=== PATIENT | male | born 1960 | race Caucasian/White ===

== ENCOUNTER 2016-09-30 14:36 | Emergency (ER) | payer OTHER ==
[~2016-09-30] VITALS: Ht 167.6 cm; Wt 69.8 kg
--- NOTE | ~2016-09-30 | CT4 ---
[facility] A Service of [facility] RADIOLOGY TEXT RESULTS PATIENT: JOEL DAVIS LOCATION: [facility] : 60 UNIT #: [id number] AGE: [address]: Mercedes Ornelas MD SEX: M ORDER DR: [id number] [facility] [address] [place], [place] [address] [id number] E MR#: [id number] #: [id number] NAME: JOEL DAVIS : 1960 SEX: M STUDY DATE/TIME: 09/30/2016 17:50 UNIT: [facility] ROOM: STUDY DESCRIPTION: CT Abd and Pelv Wo Cont Attending Physician: Mercedes Ornelas M.D. Ordering Physician: Mercedes Ornelas M.D. Primary Care Physician: Primary Care Physician No MEDICAL IMAGING REPORT This report is preliminary unless electronic signature is present EXAM CT abdomen and pelvis HISTORY Right flank pain times 1.5 weeks. History of kidney stones. Hepatitis C. Appendectomy. FINDINGS CT abdomen and pelvis performed without administration of oral or intravenous contrast. Most recent study for comparison 06/11/2013. This CT examination was performed with one or more of the following radiation dose reduction techniques: automatic exposure control, adjustment of mA and/or kV according to patient size, and iterative reconstruction. Lung bases show emphysema and bilateral dependent atelectasis. Inferior heart and pericardium unremarkable. Cirrhotic morphology of liver. New irregularly marginated though relatively geographic area of hypodensity in the right hepatic lobe measuring approximately 6.9 cm x 6.5 cm x 9.4 cm. Patchier areas of diminished density in segment 4 of the liver. The appearance is nonspecific. Benign and malignant etiologies could be considered. Fatty infiltration might be considered. Given the patient's history, hepatocellular carcinoma is a consideration. Assessment with multiphase contrast-enhanced MRI recommended on elective basis. The gallbladder is not pathologically dilated. Subtle gallbladder wall prominence without adjacent inflammatory change likely reflecting the patient's underlying metabolic status and liver disease. The spleen is enlarged measuring 16.2 cm in craniocaudal extent, previously 13.6 cm. The pancreas, adrenal glands, unremarkable. The kidneys show multiple bilateral nonobstructing calculi largest on the right in the lower pole measuring about 9 mm. Largest on the left in the mid to upper pole measuring about 7 mm. Left lower pole renal cyst unchanged. Left upper pole renal cyst unchanged. No left-sided hydronephrosis. The right kidney shows mild and new pyelocaliectasis and STS. [facility] A Service of [facility] RADIOLOGY TEXT RESULTS PATIENT: JOEL DAVIS LOCATION: [facility] : 60 UNIT #: [id number] AGE: [address]: Mercedes Ornelas MD SEX: M ORDER DR: proximal hydroureter without ureteral calculus seen. No perinephric inflammatory change or fluid collection and no periureteral inflammatory change. There is no urinary bladder calculus. The right-sided constellation of findings is nonspecific and could be physiologic in nature, a reflection of recent stone passage, or potentially reflection of right-sided urinary tract infection. Patient has multiple prostatic calcifications some of which are in the midline. The overall appearance is unchanged from 2014 but I cannot strictly exclude prostatic urethral calculus. CT PELVIS: No inguinal adenopathy. Urinary bladder unremarkable. There is no free fluid in pelvis. No pelvic adenopathy. No pathologically enlarged retroperitoneal lymph nodes. There is evidence of multiple upper abdominal varices. There is some evidence of distal esophageal varices. The visualized stomach, small bowel unremarkable. Colon shows no acute abnormality. Mild vascular prominence in the mesentery which may be a reflection of the patient's portal hypertension. Atherosclerotic arterial calcifications. Ectatic left common iliac artery measuring up to about 1.7 cm in diameter. Similar to prior study. No aortic aneurysm. The bony structures show no acute appearing abnormality. Not mentioned above, there appears to be recanalization of the periumbilical vein as well. IMPRESSION 1. Cirrhotic morphology of liver with evidence of portal hypertension. Compared to 2014, there is increased splenomegaly now measuring 16.2 cm in craniocaudal extent, previously 13.6. There is evidence of esophageal and upper abdominal varices more pronounced than on prior study. Recanalization of the periumbilical vein. 2. New large area of hypodensity in the right hepatic lobe involving portions of segment 8 and 5. It measures up to approximately 6.9 cm x 6.5 cm x 9.4 cm. The appearance is indeterminate. While a benign etiology such as fatty infiltration might be considered, malignant neoplasm inclusive of hepatocellular carcinoma is to be excluded. Finding is best further characterized with multiphase contrast-enhanced MRI or CT on an elective basis. Patchier hypodensity in the left hepatic lobe segment 4 also of indeterminate appearance. 3. Multiple bilateral nonobstructing renal calculi. There is mild right hydronephrosis and proximal hydroureter without obstructing process clearly identified. No surrounding inflammatory change. The appearance could be physiologic in nature though it is new compared to 2014. It could be a reflection of recent stone passage or right-sided urinary tract infection. Correlate with clinical status. 4. Innumerable prostatic calcifications. Overall appearance unchanged from 2014. I cannot strictly exclude prostatic urethral calculus though I see no proximal prostatic urethral distension to increase suspicion for such finding. 5. The alimentary canal shows no acute abnormality. [facility] A Service of [facility] RADIOLOGY TEXT RESULTS PATIENT: JOEL DAVIS LOCATION: [facility] #: [id number] : 60 UNIT #: [id number] AGE: [address]: Mercedes Ornelas MD SEX: M ORDER DR: 6. Left renal cysts. 7. Emphysema and bibasilar atelectasis in lungs. See remainder of incidental findings in body of report above. Dictated by... Kevin Bazzi M.D. THIS IS AN ELECTRONICALLY VERIFIED REPORT Kevin Bazzi M.D. at 10/01/2016 5:54 PM AYDE/lizett TD: 10/01/2016 10:29 JOB #: [id number] MEDICAL IMAGING REPORT Page 1 of 1 COPY
[~2016-09-30 14:36] MED LIST: BACTRIM DS TABL1 TA2 PO; CIPRO PO; DIAZEPAM PO; EC-NAPROSYN500 MG PO; FLEXERIL10 MG PO; FLOMAX0.4 MG PO; HYDROCODON-ACE1 EAC5; LORTAB 5/500 TA1 TA1 PO; LORTAB 5/500 TA1 TA2 PO; LORTAB 7.5-5001 TAB PO; MEDROL4 MG/DOSE- PO; MOTRIN600 M1 PO; NORFLEX100 M1 PO; PAIN MED; PERCOCET; PERCOCET5/325 PO; PHENERGAN12.5 MG/SU RC; PHENERGAN25 M1 DOB; PRILOSEC PO; SLEEPING MED; ULTRAM PO; VICODIN 5/1 TAB 5/50 DOB; VICODIN 5/1 TAB 5/50 PO; VICODIN 5/500 T1 TAB PO; VICODIN PO
[2016-09-30 16:17] LABS: URINE SOURCE CLEAN CATCH
[2016-09-30 16:24] LABS: URINE APPEARANCE CLEAR; URINE BILIRUBIN NEG (NEG); URINE BLOOD 1+ (NEG); URINE COLOR YELLOW; URINE GLUCOSE >1000 MG/DL (NEG); URINE KETONE NEG (NEG); URINE LEUKOCYTE ESTERASE 1+ (NEG); URINE NITRATE NEG (NEG); URINE PH 5.5 (5-8); URINE PROTEIN NEG (NEG); URINE SPECIFIC GRAVITY 1.036 (1.003-1.035); URINE UROBILINOGEN 0.2 MG/DL (NEG)
[2016-09-30 16:26] LABS: CULTURE INDICATED? YES; URINE BACTERIA AUWI NEG (NEGATIVE); URINE SQUAMOUS EPITHELIAL CELL NONE SEEN /[HPF]; UWBCS1 AUWI 200-300 (0-5)
[2016-09-30 16:59] LABS: BASOPHIL% 0.8 % (0-2.5); EOSINOPHIL# 0.1 X10e3 (0-0.7); EOSINOPHIL% 1.8 % (0.0-7.0); HEMATOCRIT 46.7 % (38.0-50.0); HEMOGLOBIN 15.8 gm/dL (13.0-16.0); LYMPHOCYTE% 23.9 % (17.0-45.0); MEAN CELL VOLUME 87.3 FL (83-96); MEAN CORPUSCULAR HEMOGLOBIN 29.6 PG (28-34); MEAN PLATELET VOLUME 7.9 FL (6.5-11.5); MONOCYTE# 0.3 X10e3 (0-1.0); MONOCYTE% 7.2 % (3.0-12.0); NEUTROPHIL# 2.8 X10e3 (1.5-7.1); NEUTROPHIL% 66.3 % (40-75); RED BLOOD COUNT 5.35 X10e (3.90-5.60); RED CELL DISTRIBUTION WIDTH 14.3 % (11.0-15.5); WHITE BLOOD COUNT 4.3 X10e3 (4.0-10.5)
[2016-09-30 17:14] LABS: PLATELET COUNT 87 X10e3 (140-420)
[2016-09-30 17:15] LABS: DIFF IND NO
[2016-09-30 17:23] LABS: ALBUMIN SERUM 4.1 g/dL (3.5-5.0); BILIRUBIN, DIRECT 0.2 mg/dL (0.0-0.2); BILIRUBIN,INDIRECT 0.3 mg/dL (0.0-0.9); BILIRUBIN,TOTAL 0.5 mg/dL (0.2-2.0); CALCIUM SERUM 9.3 mg/dL (8.4-10.2); GLOM FILT RATE Estimated 83.8 mL/min (>60); POTASSIUM 4.5 mmol/L (3.5-5.1); PROTEIN TOTAL SERUM 7.8 g/dL (6.0-8.3)
[2016-09-30] MEDS ORDERED: LORTAB 7.5-3251 EACH PO (18:40)
[2016-09-30] MEDS ORDERED: ALPRAZOLAM0.5 MG PO (18:41)
[2016-09-30] MEDS ORDERED: PRILOSEC PO (18:41)
[2016-09-30] MEDS ORDERED: MENTAX EXT (18:41)
[2016-09-30] MEDS ORDERED: NORVASC PO (18:41)
[2016-09-30] MEDS ORDERED: SYNTHROID0.2 MG PO (18:42)
== END 2016-09-30 21:15 | disposition home or self-care (01) ==
LOC: CED 14:36
DX: R10.9 Unspecified abdominal pain (principal); Z87.442 Personal history of urinary calculi; F17.200 Nicotine dependence, unspecified, uncomplicated; Z88.5 Allergy status to narcotic agent; Z88.6 Allergy status to analgesic agent; Z79.899 Other long term (current) drug therapy
CPT/HCPCS: 36415; 74176; 80048; 80076; 81003; 83690; 85025; 87086; 87186; 96361; 96374; 96375; 99284; J1170; J1885

== ENCOUNTER 2016-10-08 17:15 | Emergency (ER) | payer OTHER ==
[~2016-10-08] VITALS: Ht 167.6 cm; Wt 69.8 kg
[~2016-10-08 17:15] MED LIST changes: +ALPRAZOLAM0.5 MG PO; +LORTAB 7.5-3251 EACH PO; +MENTAX EXT; +NORVASC PO; +SYNTHROID0.2 MG PO
== END 2016-10-08 19:18 | disposition home or self-care (01) ==
LOC: SED 17:15
DX: S05.01XA Injury of conjunctiva and corneal abrasion without foreign body, right eye, initial encounter (principal); F17.210 Nicotine dependence, cigarettes, uncomplicated; K21.9 Gastro-esophageal reflux disease without esophagitis; B19.20 Unspecified viral hepatitis C without hepatic coma; Z88.5 Allergy status to narcotic agent; Z88.6 Allergy status to analgesic agent; X58.XXXA Exposure to other specified factors, initial encounter
CPT/HCPCS: 99283

== ENCOUNTER 2016-10-25 14:34 | Emergency (ER) | payer OTHER ==
--- NOTE | ~2016-10-25 | CT2 ---
[facility] A Service of [facility] RADIOLOGY TEXT RESULTS PATIENT: JOEL DAVIS LOCATION: SED : 60 UNIT #: [id number] AGE: [address]: Wei Valdez MD SEX: M ORDER DR: [id number] [place] [id number] E MR#: [id number] Acc #: [id number] NAME: JOEL DAVIS : 1960 SEX: M STUDY DATE/TIME: 10/25/2016 17:05 UNIT: SED ROOM: STUDY DESCRIPTION: CT Abd and Pelv W Cont Attending Physician: Wei Valdez M.D. Ordering Physician: Wei Valdez M.D. Primary Care Physician: Nazario Velasco M.D. MEDICAL IMAGING REPORT This report is preliminary unless electronic signature is present. EXAM CT scan of the abdomen and pelvis with contrast 10/25/2016 HISTORY Generalized abdominal pain and right side abdominal pain and fever for 1 month with generalized weakness. Hepatitis C. TECHNIQUE Spiral CT was performed through the abdomen and pelvis following intravenous contrast administration only as per clinician request. This CT exam was performed with one or more of the following radiation dose reduction techniques: automatic exposure control, adjustment of mA and/or kV according to patient size, and iterative reconstruction. FINDINGS Abdomen: The exam is limited by the lack of oral contrast. The liver demonstrates surface nodularity and prominence of the caudate lobe characteristic of cirrhosis. The liver demonstrates heterogeneous fatty infiltration. There is marked heterogeneity to the liver. No definite enhancing mass is seen but correlation with non emergent MRI of the liver is suggested for further evaluation. The spleen is enlarged measuring 14.9 cm in greatest diameter. There is ill-defined decreased density within the distal aspect of the splenic vein as well as within the proximal aspect of the superior mesenteric vein at its confluence with the splenic vein. The superior mesenteric vein also appears somewhat enlarged in its origin. Similar areas of decreased density are seen within the portal vein. The findings are concerning for potential thrombosis of a splenic vein, superior mesenteric vein and possibly the portal vein. Note is made that exam was not optimized for detection of venous thrombosis. Again correlation with MRI is recommended. Findings were called to the ordering clinician at 06:00 p.m. on 10/25/2016. There is recanalization of the periumbilical vein and prominent varices are seen in the para esophageal region as well as in the splenic hilum. The adrenal glands are STS. [facility] A Service of [facility] RADIOLOGY TEXT RESULTS PATIENT: JOEL DAVIS LOCATION: SED : 60 UNIT #: [id number] AGE: [address]: Wei Valdez MD SEX: M ORDER DR: normal. Nonobstructing renal stones are seen bilaterally. The left renal cysts are stable compared with 09/30/2016. Pelvis findings: The gut, mesenteric and marleny structures are normal. There is no free fluid in the abdomen or pelvis. Extensive prostate calcifications are noted. There are emphysematous changes at the lung bases. Ulcerated atherosclerotic plaque is seen within the abdominal aorta and common iliac arteries bilaterally. No contrasting opacification of the left external iliac artery is seen suggesting occlusion. Clinical correlation is recommended. Reconstituted flow is seen within the left common femoral artery. IMPRESSION 1. There is heterogeneous fatty infiltration of the liver. No definite mass is identified but the exam is not optimized for detection of a hepatic mass. Consider non emergent correlation with liver MRI. 2. Ill-defined areas of decreased density within the splenic vein at the origin of the superior mesenteric vein as well as portions of the portal vein. Additionally there is enlargement of the origin of the superior mesenteric vein at its junction with the splenic vein. Findings are concerning for possible thrombosis of the splenic vein, superior mesenteric vein and potentially the portal vein. The exam was not optimized for detection of venous thrombosis. Correlation with MRI is recommended. 3. Splenomegaly. Recanalization of the periumbilical vein. Esophageal varices and perisplenic varices. 4. Nonobstructing renal stones bilaterally. Left renal cysts. 5. Atherosclerotic plaque, some which is ulcerated in the lower abdominal aorta and the common iliac arteries bilaterally. There is apparent occlusion of the left external iliac artery with contrast opacification noted of the left common femoral artery with reconstituted flow. Clinical correlation recommended. 6. Emphysematous changes at the lung bases. STAT * RESULT Dictated by... Pratik Darling M.D. THIS IS AN ELECTRONICALLY VERIFIED REPORT Pratik Darling M.D. at 10/26/2016 2:19 PM KRT/to TD: 10/25/2016 18:22 JOB #: [id number] [facility] A Service of [facility] RADIOLOGY TEXT RESULTS PATIENT: JOEL DAVIS LOCATION: SED : 60 UNIT #: [id number] AGE: [address]: Wei Valdez MD SEX: M ORDER DR: MEDICAL IMAGING REPORT Page 1 of 1
[2016-10-25 16:25] LABS: URINE SOURCE CLEAN CATCH
[2016-10-25 16:26] LABS: BASOPHIL% 1.2 % (0-2.5); EOSINOPHIL# 0.1 X10e3 (0-0.7); EOSINOPHIL% 2.1 % (0.0-7.0); HEMATOCRIT 45.1 % (38.0-50.0); LYMPHOCYTE# 0.8 X10e3 (1.0-3.5); LYMPHOCYTE% 27.1 % (17.0-45.0); MEAN CELL VOLUME 87.5 FL (83-96); MEAN CORPUSCULAR HEMOGLOBIN 29.1 PG (28-34); MEAN CORPUSCULAR HGB CONC 33.2 g/dL (30-36); MEAN PLATELET VOLUME 8.3 FL (6.5-11.5); MONOCYTE# 0.4 X10e3 (0-1.0); MONOCYTE% 14.8 % (3.0-12.0); NEUTROPHIL# 1.6 X10e3 (1.5-7.1); NEUTROPHIL% 54.8 % (40-75); RED BLOOD COUNT 5.15 X10e (3.90-5.60); RED CELL DISTRIBUTION WIDTH 14.2 % (11.0-15.5); WHITE BLOOD COUNT 2.9 X10e3 (4.0-10.5)
[2016-10-25 16:27] LABS: URINE APPEARANCE SL CLOUDY; URINE BILIRUBIN NEG (NEG); URINE BLOOD 1+ (NEG); URINE COLOR YELLOW; URINE KETONE NEG (NEG); URINE LEUKOCYTE ESTERASE 1+ (NEG); URINE NITRATE POS (NEG); URINE PH 5.5 (5-8); URINE PROTEIN TRACE (NEG); URINE SPECIFIC GRAVITY 1.025 (1.003-1.035); URINE UROBILINOGEN 0.2 MG/DL (NORM)
[2016-10-25 16:29] LABS: DIFF IND YES
[2016-10-25 16:34] LABS: MICRO INDICATED? YES; URINE GLUCOSE 50 MG/DL (NORM)
[2016-10-25 16:35] LABS: ALBUMIN SERUM 3.9 g/dL (3.5-5.0); BILIRUBIN, DIRECT 0.2 mg/dL (0.0-0.2); BILIRUBIN,INDIRECT 0.6 mg/dL (0.0-0.9); BILIRUBIN,TOTAL 0.8 mg/dL (0.2-2.0); CALCIUM SERUM 8.6 mg/dL (8.4-10.2); GLOM FILT RATE Estimated 83.8 mL/min (>60); POTASSIUM 3.7 mmol/L (3.5-5.1); PROTEIN TOTAL SERUM 7.4 g/dL (6.0-8.3)
[2016-10-25 16:37] LABS: CULTURE INDICATED? YES; URINE BACTERIA 1+ (NEG); URINE SQUAMOUS EPITHELIAL CELL FEW /[HPF]; URINE WBC 25-50 /[HPF] (0-5)
[2016-10-25 16:58] LABS: PLATELET COUNT 71 X10e3 (140-420)
[2016-10-25 17:11] LABS: PLATELET ESTIMATE DECREASED (NORMAL); RBC NORMAL YES
== END 2016-10-25 21:40 ==
LOC: SED 14:34
PROVIDERS: Emergency Medicine
DX: I81 Portal vein thrombosis (principal); I74.5 Embolism and thrombosis of iliac artery; D69.6 Thrombocytopenia, unspecified; N39.0 Urinary tract infection, site not specified; K21.9 Gastro-esophageal reflux disease without esophagitis; E03.9 Hypothyroidism, unspecified; F17.210 Nicotine dependence, cigarettes, uncomplicated; Z86.19 Personal history of other infectious and parasitic diseases; Z79.899 Other long term (current) drug therapy; Z88.5 Allergy status to narcotic agent; Z88.8 Allergy status to other drugs, medicaments and biological substances
CPT/HCPCS: 36415; 74177; 80048; 80076; 81003; 82150; 83690; 85025; 87086; 96361; 96374; 96375; 96376; 99285; J1170; J2405; Q9967